=== PATIENT | female | born 1945 | race Caucasian/White ===

== ENCOUNTER 2022-09-13 21:23 | Inpatient (IN) | payer OTHER, BC ==
[~2022-09-13] VITALS: Ht 160 cm; Wt 71.7 kg
--- NOTE | 2022-09-13 21:35 | NUR ---
PT TAKEN TO BED 10 BY VIGNESH
[2022-09-13 21:37] VITALS: BP 186/79; PULSE 118; RESP 28; TEMP 103.5; O2SAT 99
[2022-09-13] MEDS ORDERED: ACETAMINOPHEN 325 MG TAB PO ONE (21:55)
[2022-09-13] MEDS ORDERED: ACETAMINOPHEN EXTRA STRENGTH 500 MG TAB ONE (21:57)
[2022-09-13] MEDS ORDERED: ACETAMINOPHEN EXTRA STRENGTH 500 MG TAB PO ONE (22:00)
[2022-09-13 22:02] LABS: BASOPHILS % (AUTO) 0.2 % (0.0-2.0); EOSINOPHILS % (AUTO) 0.5 % (0.0-4.0); HEMATOCRIT 41.4 % (36-48); HEMOGLOBIN 13.9 g/dL (12.0-16.0); LYMPHOCYTES # (AUTO) 0.6 K/uL (2.5-16.5); LYMPHOCYTES % (AUTO) 7.5 % (20.5-51.1); MEAN CORPUSCULAR HEMOGLOBIN 30 pg (27-31); MEAN CORPUSCULAR HGB CONC 34 g/dL (33-37); MEAN CORPUSCULAR VOLUME 88.1 fL (80-94); MONOCYTES # (AUTO) 0.1 K/uL (0.8-1.0); MONOCYTES % (AUTO) 1.3 % (1.7-9.3); NEUTROPHILS # (AUTO) 7.7 K/uL (1.8-7.7); NEUTROPHILS % (AUTO) 90.5 % (42.2-75.2); PLATELET COUNT (AUTO) 211 K/uL (140-450); RED CELL DISTRIBUTION WIDTH 13.6 % (11.6-13.7); WHITE BLOOD COUNT (AUTO) 8.5 K/uL (4.8-10.8)
[2022-09-13] MEDS ORDERED: NACL 0.9% 2,000 ML IV ONE (22:05)
[2022-09-13 22:18] LABS: ALBUMIN 3.4 g/dL (3.4-5.0); ANION GAP 17.8 (8-16); ASPARTATE AMINOTRANSFERASE 16 U/L (15-37); CARBON DIOXIDE 20.8 mmol/L (21-32); CHLORIDE 104 mmol/L (98-107); GLUCOSE 144 mg/dL (74-106); LIPASE 109 U/L (73-393); POTASSIUM 3.6 mmol/L (3.5-5.1); SODIUM SERUM 139 mmol/L (136-145); TOTAL BILIRUBIN 0.9 mg/dL (0.0-1.0); UREA NITROGEN, BLOOD 18 mg/dL (7-18)
--- NOTE | 2022-09-13 22:39 | NUR ---
XR AT BEDSIDE
--- NOTE | 2022-09-13 23:01 | NUR ---
pt w/c assisted to the bathroom to collect urine. pt tolerating well.
--- NOTE | 2022-09-13 23:08 | NUR ---
pt back in room. pt able to tolerate well. safety measures are in place and placed on school bus monitor.
[2022-09-13 23:09] LABS: APPEARANCE,URINE SL CLOUDY (CLEAR); BILIRUBIN,URINE NEGATIVE (NEGATIVE); BLOOD, URINE 2+ (NEGATIVE); COLOR,URINE YELLOW (YELLOW); LEUKOCYTE ESTERASE ,URINE 2+ (NEGATIVE); NITRITE, URINE POSITIVE (NEGATIVE); UGLUCOSE NEGATIVE (NEGATIVE)
[2022-09-13] MEDS ORDERED: KETOROLAC 15 MG/ML VIAL IVP ONE (23:20)
--- NOTE | 2022-09-14 00:30 | NUR ---
pt to the bathroom w/c assisted.
[2022-09-14] MEDS ORDERED: cefTRIAXone 1,000 MG VIAL ONE (00:58)
[2022-09-14] MEDS ORDERED: APRE30TA PO (03:03)
[2022-09-14] MEDS ORDERED: LOSA100T2 PO (03:03)
[2022-09-14] MEDS ORDERED: ACAR25TA PO (03:03)
[2022-09-14] MEDS ORDERED: GLIM4TAB42 PO (03:03)
[2022-09-14] MEDS ORDERED: SIMV-371 PO (03:03)
[2022-09-14] MEDS ORDERED: CELE200C PO (03:03)
[2022-09-14] MEDS ORDERED: THYR60TA7 PO (03:03)
[2022-09-14] MEDS ORDERED: XALOS OP (03:03)
[2022-09-14] MEDS ORDERED: MONT-72 PO (03:03)
[2022-09-14] MEDS ORDERED: LORazepam 2 MG/ML VIAL IVP PRN (03:10)
[2022-09-14] MEDS ORDERED: ONDANSETRON 4 MG/2 ML VIAL IVP PRN ×2 (03:10→10:35)
[2022-09-14] MEDS ORDERED: MORPHINE SULFATE 2 MG/ML SYR IVP PRN (03:10)
[2022-09-14] MEDS ORDERED: NACL 0.9% 1,000 ML IV SCH (03:10)
[2022-09-14] MEDS ORDERED: ACETAMINOPHEN 325 MG TAB PO PRN (03:10)
[2022-09-14] MEDS ORDERED: HYDROcodone/APAP 5/325 MG 1 TAB TAB PO PRN (03:10)
--- NOTE | 2022-09-14 03:38 | NUR ---
Patient will be admitted to care of Kem CHOWDHURY. Admited to Telemetry. Will go to room 120B. Belongings list completed. Report to Leyla BARNEY.
[2022-09-14 04:05] VITALS: BP 122/60; PULSE 88; PULSE 89; RESP 18; TEMP 98.7; O2SAT 96
--- NOTE | 2022-09-14 04:05 | NUR ---
RECEIVED PT AAOX4 , IV SITES INTACT AND PATENT , DENIES PAIN AT THIS TIME ,WALKS TO BED , ON TELE MONITOR - SR , ADMISSION ASSESMENT WILL BE DONE , ENSURE SAFETY , CALL LIGHT WITHIN REACH , WILL CONT. TO MONITOR .
--- NOTE | 2022-09-14 06:15 | NUR ---
C/O CHILLS / SHAKING , TEMP RE CHECK 98 .1 , PROVIDE BLANKET , AAOX4 ,O2 SAT 96 % , I STANDBY AT BEDSIDE , ENSURE SAFETY . Addendum: 09/14/22 at 0801 by Leyla Livingston RN AT 1615 RE CAN'T CHECK THE BP BECAUSE HAS UNCONTROL SHAKING / CHILLS - WILL RE CHECK THE BP .
--- NOTE | 2022-09-14 06:22 | NUR ---
TEMP RE CHECK 98 . 5 F STILL SHAKING NON STOP , CHILLS , AAOX4 , O2 SAT 56 % , I STANDBY AT BEDSIDE , .
--- NOTE | 2022-09-14 06:28 | NUR ---
STILL SHAKING , NON STOP CHILLS , AAOX4 , O2 SAT 96 % , TEMP RE CHECK 98 .5F , IVF INFUSING WELL . BP RE CHECK SBP 125 - THE PT IS TOO MUCH SHAKING WHEN THE THE TIME WE CHECK HER BP . STILL NON STOP SHAKING AND CHILLS - INFORM DR. LEMA .
--- NOTE | 2022-09-14 07:21 | NUR ---
RECEIVED REPORT FROM PAINT ROLLER COVER MACHINE SETTER NURSE FOR CONTINUITY OF CARE. PT IS AWAKE AT THIS TIME, ALERT AND ORIENTED X4. CURRENTLY ON ROOM AIR SATING WELL BUT EXPERIENCING SHORTNESS OF BREATH. PATIENT STATES NO PAIN AT THIS TIME. OVERALL SKIN INTACT, NO OPEN WOUNDS. IV SITE LOCATED AT LEFT HAND 18 GAUGE, AND RIGHT FOREARM 20 GAUGE, BOTH INTACT AND PATENT. POC DISCUSSED WITH PATIENT, CALL LIGHT WITHIN REACH, ENCOURAGED PATIENT TO USE FOR ANY ASSISTANCE.
--- NOTE | 2022-09-14 07:50 | NUR ---
ENDORSED TO LUZ NOLEN TO FF UP MY TEXT REFERRAL TO DR. LEMA IF THERE IS FUTHER ORDERS FROM DR. LEMA , I SAW THE TEXT MSG THAT I TEXTED TO DR. LEMA , LUZ NOLEN VERBALIZED UNDERSTANDING .
[2022-09-14 08:00] VITALS: BP 135/80; PULSE 108; PULSE 128; PULSE 148; RESP 20; RESP 22; TEMP 98.7; O2SAT 95
--- NOTE | 2022-09-14 08:39 | NUR ---
PATIENT HAS BEEN SCREENED AND CATEGORIZED MODERATE NUTRITION RISK. PATIENT WILL BE SEEN WITHIN 3-5 DAYS OF ADMISSION. 09/17/22-09/19/[address]
[2022-09-14] MEDS ORDERED: MAG SULF 2000 MG/WATER PREMIX 50 ML IV PRN (10:35)
[2022-09-14] MEDS ORDERED: POTASSIUM CHLORIDE 10 MEQ TABER PO PRN (10:35)
[2022-09-14] MEDS: NACL 0.9% 1,000 ML IV SCH (10:35)
[2022-09-14] MEDS ORDERED: HYDROcodone/APAP 7.5/325 MG 1 TAB PO PRN (10:35)
[2022-09-14] MEDS ORDERED: CELECOXIB 100 MG CAP PO PRN (10:35)
[2022-09-14] MEDS ORDERED: DEXTROSE 50% 50 ML SYR IVP PRN (10:35)
[2022-09-14] MEDS ORDERED: GENTAMICIN PER PHARMACY MC PRN (10:40)
--- NOTE | 2022-09-14 11:30 | NUR ---
BLOOD GLUCOSE LEVEL OF 90. NO COVERAGE NEEDED. VITAL SIGNS WNL, NO PAIN STATED. WILL CONTINUE TO MONITOR.
[2022-09-14] MEDS: BLOOD GLUCOSE MONITORING 1 DEV DEV FS SCH ×3 (11:35→20:27)
[2022-09-14 12:00] VITALS: BP 117/54; PULSE 108; RESP 20; TEMP 97.7; O2SAT 95
[2022-09-14 12:00] LABS: BASOPHILS % (AUTO) 0.1 % (0.0-2.0); LYMPHOCYTES # (AUTO) 0.5 K/uL (2.5-16.5); LYMPHOCYTES % (AUTO) 2.4 % (20.5-51.1); MEAN CORPUSCULAR HEMOGLOBIN 30 pg (27-31); MEAN CORPUSCULAR HGB CONC 33 g/dL (33-37); MEAN CORPUSCULAR VOLUME 88.4 fL (80-94); MONOCYTES # (AUTO) 0.9 K/uL (0.8-1.0); MONOCYTES % (AUTO) 4.4 % (1.7-9.3); NEUTROPHILS # (AUTO) 19.3 K/uL (1.8-7.7); NEUTROPHILS % (AUTO) 93.1 % (42.2-75.2); PLATELET COUNT (AUTO) 177 K/uL (140-450); RED BLOOD CELL COUNT(AUTO) 4.41 MIL/uL (4.20-5.40); RED CELL DISTRIBUTION WIDTH 13.4 % (11.6-13.7); WHITE BLOOD COUNT (AUTO) 20.7 K/uL (4.8-10.8)
[2022-09-14 12:13] LABS: ANION GAP 14.8 (8-16); CARBON DIOXIDE 21.6 mmol/L (21-32); CHLORIDE 106 mmol/L (98-107); CREATININE 1.2 mg/dL (0.6-1.3); GLUCOSE 94 mg/dL (74-106); POTASSIUM 3.4 mmol/L (3.5-5.1); SODIUM SERUM 139 mmol/L (136-145); UREA NITROGEN, BLOOD 19 mg/dL (7-18)
[2022-09-14 12:16] LABS: PROTHROMBIN TIME 13.3 secs (10.8-13.4)
[2022-09-14] MEDS: AMPICILLIN 2,000 MG in NACL 0.9% 100 ML IV SCH ×2 (12:19→18:31)
[2022-09-14 12:27] LABS: CHOL/HDL RATIO 1.7 (1-4.5); THYROID STIMULATING HORMONE 2.09 uIU/mL (0.34-3.74)
--- NOTE | 2022-09-14 12:28 | NUR ---
CRITICAL LAB VALUE OF LACTIC ACID 2.5, AND TROPONIN OF 1032. INFORMED DR FUENTES OF NEW LAB VALUES, AWAITING ANY CHANGE IN ORDERS.
[2022-09-14] MEDS ORDERED: GENTAMICIN 60 MG in DEXTROSE 5% 100 ML IV SCH (13:00)
--- NOTE | 2022-09-14 14:58 | NUR ---
P.T. NOTES HOLD P.T. EVAL, ELEV TROP, NURSE AWARE; FF UP WHEN ABLE.
[2022-09-14 15:04] LABS: BARBITURATE, URINE NEGATIVE ng/ml (NEG <=200); BENZODIAZEPINE, URINE NEGATIVE ng/mL (NEG <=200); CANNABINOID, URINE NEGATIVE ng/mL (NEG <=50); COCAINE, URINE NEGATIVE ng/mL (NEG <=300); OPIATE, URINE NEGATIVE ng/mL (NEG <=2000); PHENCYCLIDINE SCREEN,URINE NEGATIVE ng/mL (NEG <=25)
[2022-09-14 16:00] VITALS: BP 128/73; PULSE 97; PULSE 98; RESP 20; TEMP 98.4; O2SAT 98
[2022-09-14] MEDS: INSULIN LISPRO SLIDING SCALE 100 UNITS/ML VIAL SUBQ PRN ×2 (17:24→20:27)
--- NOTE | 2022-09-14 18:21 | NUR ---
PATIENT POTASSIUM LEVEL OF 3.4, K-DUR ADMINISTERED, PT TOLERATED WELL.
[2022-09-14] MEDS: ACETAMINOPHEN 325 MG TAB PO PRN (18:39)
--- NOTE | 2022-09-14 19:30 | NUR ---
RECEIVED REPORT FROM DAY SHIFT RN FOR CONTINUITY OF CARE. PT IS AWAKE AND ALERT. NOT IN ANY DISTRESS. DENIES PAIN. CALL LIGHT WITHIN REACH. POC DISCUSSED. WILL CONTINUE TO MONITOR THE PT.
--- NOTE | 2022-09-14 19:48 | NUR ---
ADMINISTERED TYLENOL FOR FEVER OF 100.4. ENDORSED TO DAY SHIFT NURSE FOR CONTINUITY OF CARE.
[2022-09-14 20:00] VITALS: BP 121/60; PULSE 104; PULSE 105; RESP 20; TEMP 98.1; O2SAT 92
[2022-09-14] MEDS: LATANOPROST 0.005% OP 2.5 ML BTL OP SCH (20:07)
[2022-09-14] MEDS: MONTELUKAST SODIUM 10 MG TAB PO SCH (20:12)
[2022-09-14] MEDS: DOCUSATE SODIUM 100 MG GELCAP PO SCH (20:27)
[2022-09-14] MEDS ORDERED: SIMVASTATIN 10 MG TAB PO SCH (21:00)
[2022-09-14] MEDS ORDERED: VANCOMYCIN PER PHARMACY MC PRN (22:40)
[2022-09-15] VITALS: BP 108/60; PULSE 106; PULSE 109; RESP 18; TEMP 97.9; O2SAT 94
[2022-09-15] MEDS ORDERED: AZITHROMYCIN 500 MG in DEXTROSE 5% 250 ML IV ONE ×2
[2022-09-15] MEDS ORDERED: AZITHROMYCIN 500 MG INJ VIAL IV ONE (00:20)
--- NOTE | 2022-09-15 00:27 | NUR ---
VANCO 1GM GIVEN. HAD TO MIX MEDICATION SINCE MED WAS ORDERED LATE AT NIGHT. WAS UNABLE TO SCAN VANCO VIAL FOR ADMINISTRATION.
[2022-09-15] MEDS ORDERED: MEROPENEM 1,000 MG in NACL 0.9% 50 ML IV ONE (01:00)
[2022-09-15] MEDS ORDERED: MEROPENEM 1,000 MG VIAL IV ONE (01:19)
[2022-09-15] MEDS ORDERED: VANCOMYCIN 1GM/DEXT 5% PREMIX 200 ML IV ONE (02:00)
[2022-09-15] MEDS ORDERED: VANCOMYCIN 1,000 MG VIAL ONE (02:37)
[2022-09-15 04:00] VITALS: BP 95/59; PULSE 90; PULSE 95; RESP 20; TEMP 97.6; O2SAT 95
--- NOTE | 2022-09-15 04:00 | NUR ---
PT WAS ASSISTED TO THE RESTROOM. PT FOUND DIAPHORETIC. NO FEVER. TEMP 98.4. BED LINENS CHANGED AND PT GOWN. NO COMPLAINS FROM THE PT. CALL LIGHT WITHIN REACH. WILL CONTINUE TO MONITOR THE PT.
[2022-09-15 04:54] LABS: HEMATOCRIT 39.1 % (36-48); HEMOGLOBIN 12.8 g/dL (12.0-16.0); MEAN CORPUSCULAR HEMOGLOBIN 29 pg (27-31); MEAN CORPUSCULAR HGB CONC 33 g/dL (33-37); MEAN CORPUSCULAR VOLUME 88.6 fL (80-94); PLATELET COUNT (AUTO) 146 K/uL (140-450); RED BLOOD CELL COUNT(AUTO) 4.41 MIL/uL (4.20-5.40); RED CELL DISTRIBUTION WIDTH 13.8 % (11.6-13.7)
[2022-09-15 05:09] LABS: ALBUMIN 2.5 g/dL (3.4-5.0); ANION GAP 16.3 (8-16); ASPARTATE AMINOTRANSFERASE 30 U/L (15-37); CARBON DIOXIDE 20.8 mmol/L (21-32); CHLORIDE 103 mmol/L (98-107); CREATININE 1.6 mg/dL (0.6-1.3); GLUCOSE 223 mg/dL (74-106); MAGNESIUM 1.8 mg/dL (1.8-2.4); PHOSPHORUS 3.1 mg/dL (2.5-4.9); POTASSIUM 4.1 mmol/L (3.5-5.1); SODIUM SERUM 136 mmol/L (136-145); TOTAL BILIRUBIN 0.8 mg/dL (0.0-1.0); UREA NITROGEN, BLOOD 25 mg/dL (7-18)
[2022-09-15 05:14] LABS: WHITE BLOOD COUNT (AUTO) 28.3 K/uL (4.8-10.8)
[2022-09-15 05:15] LABS: LYMPHOCYTES % (MANUAL) 5 % (20-46); MONOCYTES % (MANUAL) 2 % (5-12)
[2022-09-15] MEDS: LEVOTHYROXINE 0.025 MG TAB PO SCH (06:16)
[2022-09-15] MEDS: NACL 0.9% 1,000 ML IV SCH ×2 (06:35→18:36)
--- NOTE | 2022-09-15 07:20 | NUR ---
RECEIVED REPORT FROM AGING ROOM OPERATOR FOR CONTINUITY OF CARE. PT IS RESTING COMFORTABLY. BOTH IV SITES STILL INTACT AND PATENT. NOTICEABLE CHEST RISE AND FALL NOTED. PT NOT EXPERIENCING ANY SOB AT THIS TIME. WHITEBOARD UPDATED, CALL LIGHT WITHIN REACH, SAFETY MEASURES IN PLACE.
--- NOTE | 2022-09-15 07:27 | NUR ---
ENDORSED PT TO DAY SHIFT RN FOR CONTINUITY OF CARE. PT IS STABLE.
[2022-09-15 08:00] VITALS: BP 113/62; PULSE 91; PULSE 94; RESP 19; TEMP 98.5; O2SAT 98
[2022-09-15] MEDS ORDERED: ACARBOSE 50 MG TAB PO SCH (08:00)
[2022-09-15] MEDS: BLOOD GLUCOSE MONITORING 1 DEV DEV FS SCH ×4 (08:21→20:41)
[2022-09-15] MEDS: LOSARTAN 50 MG TAB PO SCH (08:58)
[2022-09-15] MEDS: DOCUSATE SODIUM 100 MG GELCAP PO SCH ×2 (08:59→20:40)
[2022-09-15] MEDS: INSULIN LISPRO SLIDING SCALE 100 UNITS/ML VIAL SUBQ PRN ×3 (09:03→20:39)
[2022-09-15] MEDS: MEROPENEM 1,000 MG in NACL 0.9% 50 ML IV SCH ×2 (09:34→20:31)
[2022-09-15] MEDS: PANTOPRAZOLE 40 MG INJ VIAL IVP SCH (09:34)
--- NOTE | 2022-09-15 10:59 | NUR ---
P.T. NOTES P.T. EVAL COMPLETED; REFER TO EVAL FOR DETAILS.
--- NOTE | 2022-09-15 11:45 | NUR ---
PATIENT COMPLAINING OF 6/10 PAIN IN LOWER BACK. REPOSITIONED THE PATIENT AND ADMINISTERED NORCO 7.5/325 MG PO PRN PER MD ORDER. WILL REASSESS PATIENTS PAIN LEVEL IN HOUR.
[2022-09-15 12:00] VITALS: BP 132/63; PULSE 96; PULSE 99; RESP 20; TEMP 99.1; O2SAT 95
--- NOTE | 2022-09-15 12:30 | NUR ---
DURING LUNCH TIME, PATIENT REFUSED TO EAT STATING SHE IS SCARED TO EAT DUE TO THROWING UP AFTERWARDS. 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 CALLED DIETARY TO GIVE UPDATE ON PATIENTS NEW DIETARY REQUEST. VEGETABLE BROTH WAS BROUGHT TO THE PATIENT, TOLERATED FEEDING WELL, NO SIGNS/SYMPTOMS OF NAUSEA/VOMITING.
--- NOTE | 2022-09-15 15:49 | NUR ---
PATIENT EXPERIENCING SEVERE PAIN IN HEAD AND BACK. REPORTS 9/10 PAIN. BLOOD PRESSURE 197/80, HEART RATE 121. POC DISCUSSED AND MORPHINE 2MG IVP WAS ADMINISTERED TO PATIENT BY RN: SMILEY. PT TOLERATED WELL. WILL REASSESS PATIENTS PAIN AND BLOOD PRESSURE IN ONE HOUR.
[2022-09-15 16:00] VITALS: BP 197/80; PULSE 120; PULSE 121; RESP 22; TEMP 99.8; O2SAT 95
--- NOTE | 2022-09-15 19:30 | NUR ---
RECEIVED REPORT FROM DAY SHIFT NURSE FOR CONTINUITY OF CARE. PT IS AWAKE AND ALERT. NOT IN ANY DISTRESS. DENIES PAIN. CALL LIGHT WITHIN REACH. POC DISCUSSED. WILL CONTINUE TO MONITOR THE PT.
--- NOTE | 2022-09-15 19:53 | NUR ---
ENDORSED TO PACKAGER OR PACKER AND WEIGHER NURSE FOR CONTINUITY OF CARE. PT IS STABLE AT THIS TIME.
[2022-09-15 20:00] VITALS: BP 111/50; PULSE 107; PULSE 71; RESP 18; TEMP 98.5; O2SAT 95
[2022-09-15] MEDS: MONTELUKAST SODIUM 10 MG TAB PO SCH (20:29)
[2022-09-15] MEDS: LATANOPROST 0.005% OP 2.5 ML BTL OP SCH (20:30)
[2022-09-15] MEDS: METOPROLOL 25 MG TAB PO SCH (20:30)
[2022-09-15] MEDS ORDERED: AZITHROMYCIN 500 MG in DEXTROSE 5% 250 ML IV SCH (21:00)
[2022-09-16] VITALS (11 sets, daily range): BP systolic 140–223; BP diastolic 60–99; PULSE 87–123; RESP 18–20; TEMP 97.1–100.4; O2SAT 93–95
--- NOTE | 2022-09-16 02:15 | NUR ---
OBSERVED PT. PT IS SLEEPING COMFORTABLY IN BED. NOT IN ANY DISTRESS. BREATHING EVEN AND UNLABORED. CALL LIGHT WITHIN REACH. WILL CONTINUE TO MONITOR THE PT.
[2022-09-16] MEDS: LEVOTHYROXINE 0.025 MG TAB PO SCH (06:29)
[2022-09-16] MEDS: BLOOD GLUCOSE MONITORING 1 DEV DEV FS SCH ×4 (06:32→20:28)
[2022-09-16] MEDS: INSULIN LISPRO SLIDING SCALE 100 UNITS/ML VIAL SUBQ PRN ×4 (06:32→20:28)
[2022-09-16 06:50] LABS: BASOPHILS % (AUTO) 0.1 % (0.0-2.0); EOSINOPHILS # (AUTO) 0.2 K/uL (0-0.4); EOSINOPHILS % (AUTO) 1.4 % (0.0-4.0); HEMATOCRIT 37.8 % (36-48); HEMOGLOBIN 12.6 g/dL (12.0-16.0); LYMPHOCYTES # (AUTO) 1.2 K/uL (2.5-16.5); MEAN CORPUSCULAR HEMOGLOBIN 29 pg (27-31); MEAN CORPUSCULAR HGB CONC 33 g/dL (33-37); MEAN CORPUSCULAR VOLUME 87.8 fL (80-94); MONOCYTES % (AUTO) 5.7 % (1.7-9.3); NEUTROPHILS # (AUTO) 14.6 K/uL (1.8-7.7); PLATELET COUNT (AUTO) 132 K/uL (140-450); RED BLOOD CELL COUNT(AUTO) 4.31 MIL/uL (4.20-5.40); RED CELL DISTRIBUTION WIDTH 13.4 % (11.6-13.7)
[2022-09-16 07:07] LABS: ANION GAP 14.5 (8-16); CARBON DIOXIDE 21.7 mmol/L (21-32); CHLORIDE 102 mmol/L (98-107); CREATININE 1.3 mg/dL (0.6-1.3); GLUCOSE 170 mg/dL (74-106); POTASSIUM 4.2 mmol/L (3.5-5.1); SODIUM SERUM 134 mmol/L (136-145); UREA NITROGEN, BLOOD 31 mg/dL (7-18)
[2022-09-16 07:15] LABS: LYMPHOCYTES % (AUTO) 7.2 % (20.5-51.1); NEUTROPHILS % (AUTO) 85.6 % (42.2-75.2)
--- NOTE | 2022-09-16 07:18 | NUR ---
ENDORSED PT TO DAY SHIFT NURSE FOR CONTINUITY OF CARE. PT IS STABLE.
[2022-09-16 07:37] LABS: MAGNESIUM 2.1 mg/dL (1.8-2.4); PHOSPHORUS 2.1 mg/dL (2.5-4.9)
[2022-09-16] MEDS: MEROPENEM 1,000 MG in NACL 0.9% 50 ML IV SCH (08:47)
[2022-09-16] MEDS: METOPROLOL 25 MG TAB PO SCH ×2 (08:48→20:25)
[2022-09-16] MEDS: DOCUSATE SODIUM 100 MG GELCAP PO SCH ×2 (08:48→20:28)
[2022-09-16] MEDS: PANTOPRAZOLE 40 MG INJ VIAL IVP SCH (08:48)
[2022-09-16] MEDS: LOSARTAN 50 MG TAB PO SCH (08:48)
[2022-09-16] MEDS: ECOTRIN 81 MG TABEC PO SCH (08:49)
[2022-09-16] MEDS: ATORVASTATIN 20 MG TAB PO SCH (08:49)
[2022-09-16] MEDS ORDERED: VANCOMYCIN 1,000 MG in NACL 0.9% 250 ML IV SCH (09:00)
--- NOTE | 2022-09-16 09:00 | NUR ---
NURSES NOTE PATIENT RECEIVED AT BED SIDE A/OX4 , VSS , ON ROOM AIR , SINUS RHYTHM ON MONITOR ON CONSISTENT CARB DIET , NO N/V , SAFETY PROACTION ON PLACE , SIDE RAILS UP X3 , BED IN LOWER POSITION CALL LIGHT WITHIN REACH , SKIN SEE SKIN ASSESSMENT , EDUCATION GIVEN ABOUT CARE PLAN , MEDS REGIMEN PAIN MEDS , SAFETY , PATIENT AMBULATORY WITH ASSISTANCE , NO COMPLAIN AT THIS TIME , ON IV FLUID N/S 0.9% 50CC/H , PT STILL UNDER OBSERVE .
[2022-09-16] MEDS: ACETAMINOPHEN 325 MG TAB PO PRN (11:28)
--- NOTE | 2022-09-16 12:05 | NUR ---
PATIENT HAS SHAVING VS TAKEN , TEMP 100.4 TWO TAB TYLENOL PO GIVEN PATIENT FORB EVALUATION .
--- NOTE | 2022-09-16 12:23 | NUR ---
PATIENT BP HIGH 223/99 DR SAENZ NOTIFIED , HE GIVE ORDER FOR YHYDRLAZINE 10MG .
[2022-09-16] MEDS: hydrALAZINE 20 MG/ML VIAL IVP PRN (12:38)
[2022-09-16] MEDS ORDERED: traMADol 50 MG TAB PO PRN (12:45)
--- NOTE | 2022-09-16 17:17 | NUR ---
patient on bed rest , A/OX4 , VSS , sinus rhythm on monitor , still on iv 0.9% n/s 50cc/h patient on content isolation , safety proaction on place , no complain at this time will continue observe .
--- NOTE | 2022-09-16 19:24 | NUR ---
shift report given to jamal rn nurse , all her question answered
--- NOTE | 2022-09-16 19:30 | NUR ---
RECEIVED PT IN BED AWAKE, ALERT AND ORIENTED X 4. DENIES PAIN AT THIS TIME. NO ACUTE RESPIRATORY DISTRESS NOTED. FAMILY MEMBERS AT THE BEDSIDE. SKIN WARM AND DRY TO TOUCH. BED IN THE LOWEST AND LOCKED POSITION FOR SAFETY, CALL LIGHT WITHIN REACH, INSTRUCTED TO CALL IF ASSISTANCE IS NEEDED, PT VERBALLY AGREED.
[2022-09-16] MEDS: MONTELUKAST SODIUM 10 MG TAB PO SCH (20:25)
[2022-09-16] MEDS: LATANOPROST 0.005% OP 2.5 ML BTL OP SCH (20:26)
[2022-09-16] MEDS: NACL 0.9% 1,000 ML IV SCH (21:39)
--- NOTE | 2022-09-16 23:00 | NUR ---
REPORT GIVEN TO ARIE FOR CONTINUITY OF CARE.
--- NOTE | 2022-09-16 23:01 | NUR ---
RECEIVED SHIFT REPORT FROM SALMA BARNEY FOR CONTINUITY OF CARE. PATIENT WAS NOTED IN BED ASLEEP. CHEST RISING AND FALLING WITHOUT INCIDENT. NO S/S OF PAIN/DISCOMFORT AT THIS TIME. PATIENT KEPT CLEAN AND DRY. ALL NEEDS MET AT THIS TIME. NO S/S OF HYPER/HYPOGLYCEMIA. SIDE RAILS UP X 2 FOR SAFETY AND ADJUSTMENT WHILE IN BED. CALL LIGHT WITHIN REACH FOR ALL ASSISTANCE. [email or web address]
[2022-09-17] VITALS (7 sets, daily range): BP systolic 141–179; BP diastolic 69–84; PULSE 82–101; RESP 17–21; TEMP 97.1–98.4; O2SAT 93–98
--- NOTE | 2022-09-17 02:54 | NUR ---
PATIENT NOTED DURING ROUNDS IN BED ASLEEP. CHEST NOTED RISING AND FALLING WITHOUT INCIDENT. NO NOTED PAIN/DISCOMFORT. ALL NEEDS MET AT THIS TIME. NO NOTED S/S OF RESPIRATORY DISTRESS. NO S/S OF HYPER/HYPOGLYCEMIA. SIDE RAILS UP X 2 FOR SAFETY AND COMFORT. CALL LIGHT WITHIN REACH. [email or web address]
[2022-09-17] MEDS: hydrALAZINE 20 MG/ML VIAL IVP PRN (04:45)
[2022-09-17 05:06] LABS: BASOPHILS % (AUTO) 0.2 % (0.0-2.0); EOSINOPHILS % (AUTO) 0.2 % (0.0-4.0); HEMATOCRIT 37.1 % (36-48); HEMOGLOBIN 12.4 g/dL (12.0-16.0); LYMPHOCYTES # (AUTO) 1.2 K/uL (2.5-16.5); LYMPHOCYTES % (AUTO) 8.8 % (20.5-51.1); MEAN CORPUSCULAR HEMOGLOBIN 29 pg (27-31); MEAN CORPUSCULAR HGB CONC 33 g/dL (33-37); MEAN CORPUSCULAR VOLUME 87.4 fL (80-94); MONOCYTES # (AUTO) 1.2 K/uL (0.8-1.0); MONOCYTES % (AUTO) 8.6 % (1.7-9.3); NEUTROPHILS # (AUTO) 11.1 K/uL (1.8-7.7); NEUTROPHILS % (AUTO) 82.2 % (42.2-75.2); PLATELET COUNT (AUTO) 132 K/uL (140-450); RED BLOOD CELL COUNT(AUTO) 4.24 MIL/uL (4.20-5.40); RED CELL DISTRIBUTION WIDTH 13.7 % (11.6-13.7); WHITE BLOOD COUNT (AUTO) 13.5 K/uL (4.8-10.8)
--- NOTE | 2022-09-17 05:21 | NUR ---
COVERING NURSE GAVE THE PRN FOR ELEVATED BLOOD PRESSURE. NURSING WILL REASSESS IN ONE HOUR FROM 0455. WILL NOTED FOR EFFECTIVENESS AND SIDE EFFECTS IF ANY. [email or web address]
[2022-09-17 05:36] LABS: CHLORIDE 104 mmol/L (98-107); CREATININE 1.3 mg/dL (0.6-1.3); GLUCOSE 163 mg/dL (74-106); SODIUM SERUM 136 mmol/L (136-145); UREA NITROGEN, BLOOD 30 mg/dL (7-18)
[2022-09-17 05:45] LABS: MAGNESIUM 2.1 mg/dL (1.8-2.4); PHOSPHORUS 2.1 mg/dL (2.5-4.9)
--- NOTE | 2022-09-17 06:09 | NUR ---
REASSESSED BLOOD PRESSURE AND IT WENT DOWN BUT NOT BY MUCH AM SHIFT NURSE WILL BE INFORMED BUT AM MEDS PATIENT GET LOSARTAN. [email or web address]
[2022-09-17] MEDS: LEVOTHYROXINE 0.025 MG TAB PO SCH (06:24)
[2022-09-17] MEDS: BLOOD GLUCOSE MONITORING 1 DEV DEV FS SCH ×3 (06:25→16:46)
[2022-09-17] MEDS: INSULIN LISPRO SLIDING SCALE 100 UNITS/ML VIAL SUBQ PRN ×3 (06:41→16:51)
--- NOTE | 2022-09-17 07:05 | NUR ---
RECEIVED PT FROM BEE RAISER FOR CONTINUITY OF CARE. ALERT AND ORIENTED X 4. RESP. EVEN AND UNLABORED. ON CONTINUOUS O2 @ 2L/NC. IVF INFUSING WELL. NO C/O PAIN OR DISCOMFORT. CALL LIGHT KEPT WITHIN REACH. WILL CONTINUE TO MONITOR.
--- NOTE | 2022-09-17 07:08 | NUR ---
ENDORSED TO FAHEEM ESCOBAR, PATIENT WAS STABLE DURING SHIFT REPORT. NURSING WILL INFORM OF ELEVATED BLOOD PRESSURE. SIDE RAILS UP X 2 CALL LIGHT WITHIN REACH. [email or web address]
--- NOTE | 2022-09-17 07:58 | NUR ---
Patient's Plan of Care was discussed and reviewed with LUZ: [id number]
[2022-09-17] MEDS: DOCUSATE SODIUM 100 MG GELCAP PO SCH (09:00)
[2022-09-17] MEDS: ECOTRIN 81 MG TABEC PO SCH (09:47)
[2022-09-17] MEDS: ATORVASTATIN 20 MG TAB PO SCH (09:47)
[2022-09-17] MEDS: LOSARTAN 50 MG TAB PO SCH (09:48)
[2022-09-17] MEDS: METOPROLOL 25 MG TAB PO SCH (09:48)
--- NOTE | 2022-09-17 09:49 | NUR ---
SCHEDULED MEDICATIONS GIVEN. TOLERATED WELL. PT REFUSED DOCUSATE SODIUM. EXPLAINED RISK AND BENEFITS BUT STILL REFUSED.
[2022-09-17] MEDS ORDERED: ASPI-1856 PO (10:49)
[2022-09-17] MEDS ORDERED: DOCU-299 PO (10:49)
[2022-09-17] MEDS ORDERED: METO25TA PO (10:49)
[2022-09-17] MEDS ORDERED: ROC2I IV (10:49)
[2022-09-17] MEDS: PANTOPRAZOLE 40 MG INJ VIAL IVP SCH (11:32)
--- NOTE | 2022-09-17 13:16 | NUR ---
DC [age] YRS OLD FEMALE PATIENT WAS ADMITTED FROM HOME WITH A DX OF SEPSIS. PATIENT HAS A HX OF GLAUCOMA, HT, DM, HYPOTHYROID. CXR SHOWED INTERSTITIAL EDEMA/INFILTRATES. CT CHEST NO PE. VENOUS DOPPLER NO DVT. RAPID COVID TEST NEGATIVE INFLUENZA A&B NEGATIVE. ADMINISTERED IVF, IV ABX ROCEPHIN AND CONTINUED HOME MEDS. CONSULTED WITH NEPHRO, PULMO, ID, UROLOGIST, CARDIO AND PODIATRY. ORDERED PT EVALUATION. DC PLAN TO GO HOME WITH HOME HEALTH VS SNF. CM TO FOLLOW
--- NOTE | 2022-09-17 13:19 | NUR ---
RECEIVED ORDER FOR PATIENT TO GO TO SNF FOR PT AND IV ABX. FAXED ALL PAPERWORK TO [facility]. SPOKE WITH ORIANA WHO INFORMED ME THAT PATIENT HAS AN OPEN WORKMEN COMP CASE FROM 2019 AND WOULD NEED TO CALL MEDICARE TO CLOSE THAT CASE OR ELSE MEDICARE WOULDN'T PAY ANY SNF FOR THE STAY. WENT TO BEDSIDE TO GIVE MEDICARE CUSTOMER SERVICE NUMBER Addendum: 09/17/22 at 1345 by COBY RED CM FAXED ALL PAPERWORK TO [facility] Addendum: 09/17/22 at 1455 by COBY RED CM RECEIVED CALL FROM JR AT [facility] LOC[facility] AT [facility]. PATIENT WAS ACCEPTED AND WILL BE GOING TO ROOM [address] WERTZ. QUINTERO FROM [facility] WILL SETUP TRANSPORT AND SEND US THE ETA.
--- NOTE | 2022-09-17 14:30 | NUR ---
INFORMED BY PAMELLA BLAKE PT WILL BE HAND LASTER @ 1700. Addendum: 09/17/22 at 1714 by FAHEEM RODRIGUEZ LVN ENTERED WRONG DOCUMENTATION.
--- NOTE | 2022-09-17 14:48 | NUR ---
09/17/22 RD INITIAL ASSESSMENT COMPLETED PLEASE REFER TO NUTRITION ASSESSMENT UNDER CARE ACTIVITY FOR ESTIMATED NUTRITIONAL NEEDS. [facility]. [facility] TOLERATED 2. RD TO FOLLOW-UP 3-5 DAYS, MODERATE RISK ROBBIE COLLADO RD
[2022-09-17] MEDS ORDERED: ALBUTEROL 0.083% 2.5 MG/3 ML NEBU INH PRN (15:10)
--- NOTE | 2022-09-17 15:11 | NUR ---
FOUND PT ON 5LNC SATURATION 99%. SHE STATED THAT SHE WAS HAVING A HARD TIME BREATHING AND THAT SHE COULD FEEL WHEEZING & RATTLING IN HER CHEST. ON AUSCULTATION BS HEARD WERE EXPIRATORY WHEEZES. BREATHING TREATMENT WAS INDICATED. RT ORDERED AND ADMINISTERED ALB 2.5MG Q4PRN. PT JESENIA TX WELL NO ADVERSE REACTIONS, POST HHN PT STATED THAT SHE FEELS LIKE SHE CAN BREATHE BETTER SATURATION AT THIS TIME IS 98% ON RA HR88. WHEEZES SUBSIDED. CALL LIGHT WITHIN REACH, WILL CONT TO MONITOR THROUGHOUT SHIFT.
--- NOTE | 2022-09-17 15:48 | NUR ---
ROCEPHIN IV WAS GIVEN BY PARAG BARNEY. TOLERATED WELL.
--- NOTE | 2022-09-17 16:30 | NUR ---
INFORMED BY PAMELLA BLAKE PT WILL BE COMPUTER SUPPORT ANALYST @ 1274.
--- NOTE | 2022-09-17 16:46 | NUR ---
BS CHECKED 210. INSULIN WAS GIVEN PER SLIDING SCALE.
--- NOTE | 2022-09-17 17:10 | NUR ---
CALLED [facility] OS[facility]IO SPOKE TO BERNARDA, REPORT GIVEN.
[2022-09-17] MEDS: NACL 0.9% 1,000 ML IV SCH (18:35)
--- NOTE | 2022-09-17 19:05 | NUR ---
PT LEFT. DISCHARGED TO [facility]. TRANSPORTED BY PERSONAL TRANSPORTATION, ACCOMPANIED BY 2 MALE STAFF PER RHAYWARD. ALERT AND ORIENTED X 4. RESP. EVEN AND UNLABORED. SKIN INTACT. DISCHARGED PAPERWORK DISCUSSED AND SIGNED BY PT. ID BAND REMOVED. NO C/O PAIN OR DISCOMFORT. REMAINS STABLE.
== END 2022-09-17 19:05 | DRG 871 ==
LOC: MED 21:23 → MTU 09-14 03:12
PROVIDERS: ADMIT Student in an Organized Health Care Education/Training Program; ATTEND Student in an Organized Health Care Education/Training Program
DX: A41.51 Sepsis due to Escherichia coli [E. coli] (principal); J69.0 Pneumonitis due to inhalation of food and vomit; N13.6 Pyonephrosis; D68.59 Other primary thrombophilia; N17.9 Acute kidney failure, unspecified; R65.20 Severe sepsis without septic shock; R79.89 Other specified abnormal findings of blood chemistry; M77.31 Calcaneal spur, right foot; Z20.822 Contact with and (suspected) exposure to COVID-19; H40.9 Unspecified glaucoma; E11.51 Type 2 diabetes mellitus with diabetic peripheral angiopathy without gangrene; I50.9 Heart failure, unspecified; I11.0 Hypertensive heart disease with heart failure; E03.9 Hypothyroidism, unspecified; E78.5 Hyperlipidemia, unspecified; M65.861 Other synovitis and tenosynovitis, right lower leg; E66.9 Obesity, unspecified; Z88.8 Allergy status to other drugs, medicaments and biological substances; Z79.4 Long term (current) use of insulin; Z68.28 Body mass index [BMI] 28.0-28.9, adult; Z79.899 Other long term (current) drug therapy
CPT/HCPCS: 36415; 71045; 71275; 80048; 80053; 80202; 80305; 81001; 82140; 82150; 82948; 83036; 83605; 83690; 83735; 83880; 84100; 84443; 84484; 85025; 85379; 85610; 85730; 87040; 87081; 87086; 93005; 93925; 93970; 94640; 96361; 96374; 96375; 97112; 97116; 99291; 99292; C9113; J0290; J0360; J0456; J0696; J1580; J1644; J1815; J1885; J2185; J2270; J2405; J3370; J7030; J7060; J7613; Q0092; Q9967